=== PATIENT | female | born 1970 | race Caucasian/White ===

== ENCOUNTER → 2021-10-09 07:51 | Outpatient (CLI) | payer OTHER, SELFPAY ==
[2021-10-09 09:40] LABS: Add Manual Diff / Slide Review NO; Basophils Absolute Auto 0 /uL (0-100); Basophils Percent Auto 0.7 % (0-2); Eosinophils Absolute Auto 100 /uL (0-450); Eosinophils Percent Auto 1.6 % (2-4); Hematocrit 38.6 % (36-46); Hemoglobin 12.8 g/dL (12.0-16.0); Lymphocytes Absolute Auto 1600 /uL (1100-4500); Lymphocytes Percent Auto 37.1 % (25-40); Mean Corpuscular Hemoglobin 29.8 PG (26-34); Mean Corpuscular Volume 90.1 fL (80-100); Monocytes Absolute Auto 400 /uL (0-900); Monocytes Percent Auto 8.3 % (3-14); Neutrophils Absolute Auto 2300 /uL (1500-7000); Neutrophils Percent Auto 52.3 % (50-75); Platelet Count 292 X10^3/uL (150-400); Red Blood Cell Count 4.29 X10^6/uL (4.0-5.2); Red Cell Distribution Width 14.2 % (11.6-14.8); White Blood Cell Count 4.4 X10^3/uL (4.5-11.0)
[2021-10-09 10:25] LABS: Alanine Aminotransferase 20 IU/L (<35); Albumin 4.2 g/dL (3.5-5.0); Albumin Globulin Ratio 1.5 (1.0-2.8); Alkaline Phosphatase 48 U/L (38-126); Aspartate Aminotransferase 27 IU/L (14-36); BUN Creatinine Ratio 14.7 (6-22); Bilirubin Total 0.4 mg/dL (0.2-1.3); Blood Urea Nitrogen 10 mg/dL (7-17); Calcium 9.8 mg/dL (8.4-10.2); Carbon Dioxide 32 mmol/L (22-32); Chloride 101 mmol/L (98-107); Cholesterol 278 mg/dL (140-199); Estimated Glomerular Filt Rate > 60.0 mL/min (>60); Globulin 2.8 g/dL (1.7-4.1); Glucose 88 mg/dL (70-100); HDL Cholesterol 84 mg/dL (40-60); HEMOLYSIS < 15 (0-50); LDL Cholesterol Calculated 180 mg/dL (<100); Potassium 5.1 mmol/L (3.4-5.1); Sodium 138 mmol/L (137-145); Triglycerides 69 mg/dL (35-150)
[2021-10-09 10:39] LABS: Vitamin D 25 Hydroxy (D3) 60.2 ng/mL (30.0-100.0)
[2021-10-09 10:44] LABS: Free T3, Triiodothyronine Free 3.37 pg/mL (2.77-5.27); Free T4, Direct Thyroxine 0.99 ng/dL (0.78-2.19)
[2021-10-09 10:48] LABS: Fibrinogen 348 mg/dL (211-428)
[2021-10-09 10:58] LABS: Thyroid Stimulating Hormone 1.77 uIU/mL (0.47-4.68)
[2021-10-10 08:13] LABS: Homocysteine 9.9 umol/L (0.0-14.5)
== END ==
PROVIDERS: PCP Family Medicine; Referring Provider Family Medicine; Visit Provider Family Medicine
DX: K90.0 Celiac disease (principal); N95.1 Menopausal and female climacteric states; R93.5 Abnormal findings on diagnostic imaging of other abdominal regions, including retroperitoneum; E78.2 Mixed hyperlipidemia
CPT/HCPCS: 36415; 80053; 80061; 82306; 83090; 84439; 84443; 84481; 85025; 85384

== ENCOUNTER → 2022-01-16 10:07 | Outpatient (CLI) | payer OTHER, SELFPAY ==
--- NOTE | 2022-01-16 10:09 | DI.US.S_ITS ---
PROCEDURE: US PELVIC COMPLETE INDICATIONS: bleeding TECHNIQUE: Real-time scanning was performed of the pelvic organs, with image documentation. Additional endovaginal scanning was necessary due to incomplete visualization of the adnexal and endometrial structures by transabdominal scanning. COMPARISON: None. FINDINGS: Uterus: Uterus is anteverted and normal in size at 7.7 x 3.9 x 5.3 cm. The myometrium is homogeneous. The endometrium measures 14.1 mm combined thickness. The margins of the endometrium are poorly characterized and cystic areas are present within. Ovaries: The right ovary measures 2.6 x 2.6 x 2.2 cm, and the left ovary measures 2.7 x 1.1 x 0.9 cm. There is a 2.0 x 2.1 x 1.5 cm septated right cyst. No internal vascularity within the septation. Other: No pathologic free abdominal or pelvic fluid. IMPRESSION: 1. Ill-defined margins of the endometrium with cystic spaces present suspicious for adenomyosis. We strive to produce accurate, complete, and clear reports of imaging services. To assist us in improving patient care, this report was composed using standard report templates and voice recognition software. Therefore, it may contain abnormal punctuation, insertions and/or omissions. Occasional wrong-word or sound-alike substitutions may occur. Though we review the report and make efforts to correct it, we do recommend that the report be read carefully in proper context to recognize any text inaccuracies. Dictated by: Nurys Rose M.D. on 01/16/2022 at 11:53 Approved by: Nurys Rose M.D. on 01/16/2022 at 12:22
== END ==
PROVIDERS: PCP Family Medicine; Referring Provider Family Medicine; Visit Provider Family Medicine
DX: N95.0 Postmenopausal bleeding (principal)
CPT/HCPCS: 76830; 76856

== ENCOUNTER → 2022-01-22 09:46 | Outpatient (CLI) | payer OTHER, SELFPAY | PROVIDERS: PCP Family Medicine; Referring Provider Family Medicine; Visit Provider Family Medicine | DX: K90.0 Celiac disease (principal); Z13.820 Encounter for screening for osteoporosis; Z78.0 Asymptomatic menopausal state | CPT/HCPCS: 77080 ==

== ENCOUNTER → 2022-01-25 12:33 | Outpatient (CLI) | payer OTHER, SELFPAY ==
[2022-01-25 14:25] LABS: Cancer Antigen 125 25.1 U/mL (0-35)
== END ==
PROVIDERS: PCP Family Medicine; Referring Provider Obstetrics & Gynecology; Visit Provider Obstetrics & Gynecology
DX: R19.09 Other intra-abdominal and pelvic swelling, mass and lump (principal); N95.0 Postmenopausal bleeding
CPT/HCPCS: 36415; 86304

== ENCOUNTER → 2022-02-06 13:19 | Outpatient (CLI) | payer OTHER, SELFPAY ==
[2022-02-06 14:45] LABS: Cholesterol 277 mg/dL (140-199); HDL Cholesterol 69 mg/dL (40-60); LDL Cholesterol Calculated 180 mg/dL (<100); Triglycerides 139 mg/dL (35-150)
[2022-02-06 17:20] LABS: Follicle Stimulating Hormone 72.9 mIU/mL
[2022-02-10 15:17] LABS: Estrogen 47 pg/mL (.)
== END ==
PROVIDERS: PCP Family Medicine; Referring Provider Obstetrics & Gynecology; Visit Provider Obstetrics & Gynecology
DX: E78.2 Mixed hyperlipidemia (principal); N95.0 Postmenopausal bleeding; N95.1 Menopausal and female climacteric states
CPT/HCPCS: 36415; 80061; 82672; 83001

== ENCOUNTER → 2022-03-17 09:06 | Outpatient (CLI) | payer OTHER, SELFPAY ==
[2022-03-17 09:41] LABS: COVID19 -Nasal RAPID Negative (Negative)
== END ==
PROVIDERS: PCP Family Medicine; Visit Provider Obstetrics & Gynecology
DX: Z01.812 Encounter for preprocedural laboratory examination (principal); Z20.822 Contact with and (suspected) exposure to COVID-19
CPT/HCPCS: 87635

== ENCOUNTER 2022-03-17 12:04 | Day surgery (SDC) | payer OTHER, SELFPAY ==
[2022-03-14 12:12] VITALS: BMI 26.7
--- NOTE | 2022-03-17 | PATH_ITS ---
[facility] Accession Number: [id number] . 01 Material submitted: . PART A: endometrium - ENDOMETRIAL CURETTINGS PART B: endocervix - ENDOCERVICAL CURETTING . 02 Diagnosis: A. Endometrial Curettings: Portions of proliferative endometrium with patchy stromal breakdown; negative for glandular hyperplasia, cytologic atypia, or malignancy. Some endometrial fragments demonstrate prominent vessels, suggestive of polyp, if clinical and imaging studies are concordant. . B. Endocervical Curettings: Inflamed portions of endocervical tissue and strips of endocervical glandular epithelium; negative for glandular dysplasia or malignancy. Portions of weakly proliferative endometrium / lower uterine segment; negative for glandular hyperplasia, cytologic atypia, or malignancy. Avulsed squames with reactive changes; negative for squamous dysplasia or malignancy. MR 03/19/2022 0831 Local . 02 Electronically signed: . Waleska Pineda MD, Pathologist NPI- [id number] . 01 Gross description: . Part A: ENDOMETRIAL CURETTINGS: Received in formalin are multiple fragment(s) of lopez, soft tissue measuring 2.4 x 1.3 x 0.4 cm in aggregate submitted entirely in 1 cassette(s) Part B: ENDOCERVICAL CURETTING: Received in formalin are minute fragments of mucoid and hemorrhagic material measuring 2.0 x 0.8 x 0.2 cm in aggregate. Submitted in toto in 1 cassette. /QBJ 03/18/2022 0936 Local . 02 Pathologist provided ICD-10: N95.0 . 02 CPT . 206200, [id number] Specimen Comment: A courtesy copy of this report has been sent to [phone] Performed at: [address] [place] [address] [address] [address], [place], [place] [id number] MD Juan Francisco Peter MD Phone: [phone] Performed at: [id number] [place] [id number] MD Charline Kothari MD Phone: [phone]
[2022-03-17 12:41] VITALS: BP 103/71; PULSE 51; RESP 16; TEMP 36.4; O2SAT 100; BMI 26.6
[2022-03-17] MEDS: LACTATED RINGERS 1,000 ML 42 ML IV (13:08)
--- NOTE | 2022-03-17 13:26 | PM.PREOP ---
Pre-operative Note COVID-19 COVID-19 status: Negative Result date/Date tested (Pos, Neg/Pending): 03/17/22 Criteria for continued procedure: Non-surgical alternatives not available or appropriate per current SOC Interval Note History & Physical reviewed/Exam performed by Physician: Yes Changes to H&P: No
--- NOTE | 2022-03-17 14:08 | SUR.OPER ---
Lithotomy on padded OR bed, head on pillow, arms secured on padded arm boards at <90 degrees abduction. Legs secured in padded yellow fins stirrups.
[2022-03-17 14:30] VITALS: BP 106/59; PULSE 72; RESP 18; TEMP 36.4; O2SAT 98
[2022-03-17 14:35] VITALS: BP 110/67; PULSE 88; RESP 12; O2SAT 98
--- NOTE | 2022-03-17 14:38 | P.OP_ITS ---
Operative Date/Time/Diagnoses Date of procedure: 03/17/22 Time of procedure: 13:45 Procedure & Clinicians Procedure: Procedures Operation Date: 03/17/22 13:30 Actual Procedure Side Surgeon p Hysteroscopy w/ D&C of uterus & novasure Endometrial Ablation Poss. Bx's Shoaib Mullins MD Indications: Prince Ramos) is a 51-year-old female who presents in referral from her PCP for evaluation of perimenopausal symptoms.? Patient had regular predictable periods throughout her adult reproductive life up until early 2019 and then after 6 months of on menorrhea had a 10 day period in July of 2020.? She subsequently had 2-3 months of normal menses and then another 11-13 months of no menses.? In November of 2021 however she had light spotting and bleeding and again experience light spotting and bleeding in January of 2022.? Patient otherwise denies any intermenstrual bleeding or postcoital bleeding.? She is not having any vasomotor symptoms or night sweats.? She is however having more frequent headaches and some insomnia.? In addition she has noticed significant brain fog and gradual decline in libido over the years.? Pelvic ultrasound performed 01/16/2022 shows: PROCEDURE:? US PELVIC COMPLETE ? INDICATIONS:? bleeding ? TECHNIQUE:? Real-time scanning was performed of the pelvic organs, with image documentation.? Additional endovaginal scanning was necessary due to incomplete visualization of the adnexal and endometrial structures by transabdominal scanning.? ? COMPARISON:? None. ? FINDINGS:? ?? Uterus:? Uterus is anteverted and normal in size at 7.7 x 3.9 x 5.3 cm. The myometrium is homogeneous. ? The endometrium measures 14.1 mm combined thickness.? The margins of the endometrium are poorly characterized and cystic areas are present within. ? Ovaries:? The right ovary measures 2.6 x 2.6 x 2.2 cm, and the left ovary measures 2.7 x 1.1 x 0.9 cm.? There is a 2.0 x 2.1 x 1.5 cm septated right cyst.? No internal vascularity within the septation.? ? Other:? No pathologic free abdominal or pelvic fluid.? ? IMPRESSION:? ? 1. Ill-defined margins of the endometrium with cystic spaces present suspicious for adenomyosis. Endometrial biopsy performed 02/06/2022 which was negative for endometrial hyperplasia, neoplasia, or other abnormality.? After counseling regarding all options, the patient has decided she would want to proceed with hysteroscopy, dilation and curettage of the uterus, and endometrial ablation.? She presents today for her scheduled procedure. Surgeon: Shoaib Mullins Anesthesia Type: General Operative Notes Findings: The cervix is parous with significant ectropion of the right posterolateral lip of the cervix. The endometrial cavity is unremarkable. Post ablation visualization shows complete desiccation of the endometrium. Closure Type: not applicable Specimen(s): endometrial curettings and other (Endocerviccal curettings) Estimated blood loss (mL): 15 Blood products transfused: none Procedure in detail: With the patient under satisfactory general LMA, in the modified dorsal lithotomy position, the perineum and vagina were prepped and draped in the usual fashion for hysteroscopy.? A pre-surgical safety time-out was then taken in accordance with [facility] Main OR protocols.? A bivalve speculum was inserted in the vagina and the anterior lip of the cervix grasped with a single- tooth tenaculum.? The endocervical canal was then easily dilated to 6 mm and hysteroscope was placed through the endocervical canal into the endometrial cavity.? Inspection of the endometrial cavity with sterile saline as a distention medium revealed the findings as noted above.? Absent any focal lesions, no biopsies were taken but rather fractional curettage was then accomplished with abundant EMC and small amount of ECC submitted as separate pathologic specimens.? Following the D and C the endometrial cavity was sounded with the NovaSure device and found to be 4.0 cm in depth with a with of 2.7 cm.? After a successful cavity integrity test, the NovaSure ablation was initiated with a total ablation time of 1 minute 33 seconds and 59W utilized.? Hysteroscopic reinspection of endometrial cavity showed excellent ablation effect and the scope was removed from the endometrial cavity.? The tenaculum was then removed from the anterior lip the cervix and there was no bleeding noted from the tenaculum puncture sites.? Once complete hemostasis was assured the speculum was removed from the vagina and patient awakened from anesthesia.? Patient was transferred to PACU for a period of observation and recovery having tolerated the procedure well. Complications: none Post-operative Condition: stable Disposition: PACU Plan for aftercare: Routine postoperative care. Follow-up post-op appointment will be in 2 weeks.
[2022-03-17 14:40] VITALS: BP 113/65; PULSE 82; RESP 12; O2SAT 99
[2022-03-17 14:45] VITALS: BP 110/70; PULSE 76; RESP 18; O2SAT 98
[2022-03-17 15:00] VITALS: BP 119/74; PULSE 65; RESP 14; TEMP 36.6; O2SAT 98
== END 2022-03-17 15:30 | disposition home or self-care (01) ==
PROVIDERS: PCP Family Medicine; Referring Provider Obstetrics & Gynecology; Visit Provider Obstetrics & Gynecology
PROC: 0U5B8ZZ Destruction of Endometrium, Via Natural or Artificial Opening Endoscopic (ICD-10-PCS; CPT 58563; principal; 2022-03-17 13:30)
DX: N95.0 Postmenopausal bleeding (principal); Z20.822 Contact with and (suspected) exposure to COVID-19
CPT/HCPCS: 58563; 87635; J1100; J1885; J2250; J3010